=== PATIENT | male | born 1965 | race Caucasian/White ===

== ENCOUNTER → 2020-08-25 11:26 | Outpatient (CLI) | payer OTHER, SELFPAY ==
--- NOTE | ~2020-08-25 | XR_ITS ---
EXAMINATION: XR elbow RT 2V DATE: 08/25/2020 11:38 INDICATION: Lateral epicondylitis of right elbow. TECHNIQUE: 2 views of right elbow were obtained. COMPARISON: None. FINDINGS: Bone alignment is normal. No fracture. Joint spaces are well maintained. There is no elbow joint effusion. IMPRESSION: 1. No fracture. Reviewed, dictated and finalized at location A. IMPRESSION: 1. No fracture.
== END ==
DX: M77.11 Lateral epicondylitis, right elbow (principal)
CPT/HCPCS: 73070

== ENCOUNTER → 2021-11-17 14:57 | Outpatient (CLI) | payer BC, SELFPAY ==
--- NOTE | ~2021-11-17 | XR_ITS ---
EXAMINATION: XR lumbar spine 2-3V DATE: 11/17/2021 15:14 INDICATION: Lumbar radiculopathy TECHNIQUE: Anteroposterior and lateral views of the lumbar spine, and cone-down lateral view of the l umbosacral junction were obtained. COMPARISON: None. FINDINGS: There is no fracture. There are 2 mm of retrolisthesis of L5 on S1. The vertebral body heig hts are maintained. There is mild loss of intervertebral disc space height in the lower lumbar spine. Mild facet osteoarthritis is noted. The bowel gas pattern is normal. IMPRESSION: 1. Mild lumbar spondylosis without acute findings. Reviewed, dictated and finalized at location F. SORTER
== END ==
PROVIDERS: PCP Nurse Practitioner; Visit Provider Nurse Practitioner
DX: M47.817 Spondylosis without myelopathy or radiculopathy, lumbosacral region (principal)
CPT/HCPCS: 72100

== ENCOUNTER → 2021-11-19 12:00 | Outpatient (CLI) | payer BC, SELFPAY ==
--- NOTE | ~2021-11-19 | MR_ITS ---
EXAMINATION: MR cervical spine wo/w con EXAM DATE: 11/19/2021 13:30 INDICATION: cervical radiculopathy, neck pain, occipital headaches. TECHNIQUE: Multi-sequential, multiplanar MR images of the cervical spine were obtained without contra st. Axial T2, axial T2 MERGE sequence. Sagittal T1, T2, T2 fat saturation images also obtained. Axi al T1 weighted sequence. Patient was then injected with 14 mL Multihance intravenous contrast and re imaged. Postcontrast axial and sagittal T1-weighted fat saturation sequences were obtained. There i s no prior study for comparison. FINDINGS: There is moderate to severe disc disease at C5-6, reversal of normal cervical lordosis shivani tered at this level, some edema at the right side of the endplate. No paraspinal fluid collection or abscess. There is moderate disc disease at C6-7. There is 3 mm anterolisthesis C4 on C5. The spinal c ord signal intensity and intrinsic morphology is normal. Cervicomedullary junction is normal in appea vidal. Paraspinal soft tissue is unremarkable. Level by level evaluation: C2-C3: Disc does not extend beyond the endplate margin. Uncovertebral joint arthropathy: Moderate right. Facet joint arthropathy: Mild to moderate bilateral. Neural foraminal stenosis: Mild right. Central canal stenosis: No stenosis. C3-C4: Disc does not extend beyond the endplate margin. Uncovertebral joint arthropathy: Moderate right, mild left. Facet joint arthropathy: Moderate bilateral. Neural foraminal stenosis: Mild right. Central canal stenosis: No stenosis. C4-C5: There is a mild diffuse disc bulge. Uncovertebral joint arthropathy: Mild to moderate bilateral. Facet joint arthropathy: Moderate right, mild left. Neural foraminal stenosis: Mild right. Central canal stenosis: Mild. C5-C6: There is a mild diffuse disc bulge. Uncovertebral joint arthropathy: Moderate bilateral. Facet joint arthropathy: Moderate bilateral. Neural foraminal stenosis: Mild right. Central canal stenosis: Mild. C6-C7: There is a mild diffuse disc bulge. Uncovertebral joint arthropathy: Moderate bilateral. Facet joint arthropathy: Minimal bilateral. Neural foraminal stenosis: Mild right. Central canal stenosis: No stenosis. C7-T1: Disc does not extend beyond the endplate margin. Uncovertebral joint arthropathy: Mild left. Facet joint arthropathy: Mild bilateral. Neural foraminal stenosis: No stenosis. Central canal stenosis: No stenosis. IMPRESSION: 1. C5-6 moderate to severe disc disease. 2. Grade 1 anterolisthesis C4 on C5. Reviewed, dictated and finalized at location A. EL SINGER
[2021-11-19 12:50] LABS: Estimated Glomerular Filt Rate > 60
== END ==
PROVIDERS: Visit Provider Nurse Practitioner
DX: M47.23 Other spondylosis with radiculopathy, cervicothoracic region (principal); M48.03 Spinal stenosis, cervicothoracic region
CPT/HCPCS: 72156; A9577

== ENCOUNTER 2022-01-15 01:13 | Day surgery (SDC) | payer BC, SELFPAY ==
[2021-11-27 15:00] VITALS: BMI 21.5
[2022-01-06 14:16] VITALS: BMI 21.2
[2022-01-15 09:34] VITALS: BP 117/69; PULSE 63; RESP 18; TEMP 36.3; O2SAT 99; BMI 21.6
[2022-01-15] MEDS: LACTATED RINGERS 1,000 ML 150 ML IV CONT (09:40)
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
--- NOTE | 2022-01-15 10:35 | P.PNAN_ITS ---
Anes - Initial Pre Proc Eval Procedure: Operation Date: 01/15/22 10:30 Proposed Procedures p Screening Colonoscopy - Fareed Vilchis MD Date/Time: 01/15/22 10:35 Surgeon: Fareed Vilchis MD Pre Op Diagnosis: neoplasm screening Patient Data Age: 56 Gender: M Height: 1.85 m Weight: 74.4 kg Last Vital Signs Temp 97.3 F L 01/15/22 09:34 Pulse 63 01/15/22 09:34 Resp 18 01/15/22 09:34 BP 117/69 01/15/22 09:34 Pulse Ox 99 01/15/22 09:34 Allergies Allergy/AdvReac Type Severity Reaction Status Date / Time No Known Allergies Allergy Unknown Verified 01/15/22 09:33 Home Medications Medication Instructions Recorded Confirmed Type gabapentin 300 mg PO BID 11/27/21 01/06/22 History Patient hx anesthesia problems: none Family hx anesthesia problems: none Results Review: All pre-operative results and documents have been reviewed as part of the pre-operative evaluation. PENDING SALE TO [facility] Past Medical History Medical History (Updated 01/15/22 @ 10:30 by Hardy Rueda MD) Hyperlipidemia Social History Social History Smoking status: Never smoker Alcohol intake: current Drinks per week: 2 Substance use: never Substance use type: does not use Living arrangements: with family Spiritual care concerns: No Anes - Eval Final PreProcedure Day of Procedure 01/15/22 10:35 Patient weight: normal Heart: bradycardia Lungs: clear to auscultation Airway: Mallampati scale class II Neurological: alert and oriented Last oral intake: >/= 8 hours ASA classification: II Emergent: no Anesthetic plan: proceed Anesthesia type and monitoring: general GIVS and standard monitoring Results Review: All pre-operative results and documents have been reviewed as part of the pre-operative evaluation. Informed Consent: The patient's anesthetic plan and its attendant risks and benefits were discussed with the patient/family/POA. Questions were solicited and answers provided to the satisfaction of the patient/family/POA.
[2022-01-15 10:54] VITALS: BP 93/57; PULSE 66; RESP 16; O2SAT 97
[2022-01-15 11:04] VITALS: BP 96/64; PULSE 65; RESP 20; O2SAT 99
[2022-01-15 11:14] VITALS: BP 98/67; PULSE 71; RESP 18; O2SAT 99
== END 2022-01-15 11:29 | disposition home or self-care (01) ==
PROVIDERS: PCP Nurse Practitioner; Visit Provider Internal Medicine Gastroenterology
PROC: 0DJD8ZZ Inspection of Lower Intestinal Tract, Via Natural or Artificial Opening Endoscopic (ICD-10-PCS; CPT 45378; principal; 2022-01-15 10:30)
DX: Z12.11 Encounter for screening for malignant neoplasm of colon (principal); K57.30 Diverticulosis of large intestine without perforation or abscess without bleeding; K64.8 Other hemorrhoids
CPT/HCPCS: 45378; J2704; J7120

== ENCOUNTER → 2022-08-31 12:12 | Outpatient (CLI) | payer BC, SELFPAY ==
--- NOTE | ~2022-08-31 | MR_ITS ---
EXAMINATION: MR lumbar spine wo/w con DATE: 08/31/2022 13:00 INDICATION: Other spondylosis with radiculopathy, lumbar region. TECHNIQUE: Magnetic resonance imaging (MRI) of the lumbar spine was performed without and with 15 mL MultiHance intravenous contrast. COMPARISON: Lumbar spine radiographs 11/17/2021 FINDINGS: There is 12 degrees levoscoliosis of thoracolumbar spine. There is a Schmorl's node of supe rior endplate of L5. There is mildly decreased disc height at L4-L5. 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 The distal spinal cord signal intensity is normal. The conus medullaris is at T12-L1. The follow ing disc levels are specifically discussed: L1-L2: The disc does not extend beyond the endplate margin. There is mild bilateral facet joint osteo arthritis. There is no neural foraminal stenosis. There is no central canal stenosis. L2-L3: The disc does not extend beyond the endplate margin. There is severe right and moderate left f acet joint osteoarthritis. There is no neural foraminal stenosis. There is no central canal stenosis. L3-L4: The disc does not extend beyond the endplate margin. There is moderate right and mild left fac et joint osteoarthritis. There is no neural foraminal stenosis. There is no central canal stenosis. L4-L5: The disc does not extend beyond the endplate margin. There is mild bilateral facet joint osteo arthritis. There is no neural foraminal stenosis. There is no central canal stenosis. L5-S1: The disc is bulging and has an annular fissure. There is mild bilateral facet joint osteoarthr itis. There is mild bilateral neural foraminal stenosis. There is mild central canal stenosis. There is enhancing granulation tissue in the epidural space on the left. IMPRESSION: 1. Mild lower lumbar spondylosis. 2. Thoracolumbar levoscoliosis. Reviewed, dictated and finalized at location A.
== END ==
PROVIDERS: PCP Nurse Practitioner
DX: M47.26 Other spondylosis with radiculopathy, lumbar region (principal); D49.2 Neoplasm of unspecified behavior of bone, soft tissue, and skin; M41.85 Other forms of scoliosis, thoracolumbar region
CPT/HCPCS: 72158; A9577